=== PATIENT | female | born 1950 | race Caucasian/White ===

== ENCOUNTER → 2017-04-14 | Outpatient (CLI) | payer MEDICARE, BC | LOC: MC.RAD 07:45 | DX: Z12.31 Encounter for screening mammogram for malignant neoplasm of breast (principal) ==

== ENCOUNTER → 2018-07-06 | Outpatient (CLI) | payer MEDICARE, BC | LOC: MC.RAD 07:37 | DX: Z12.31 Encounter for screening mammogram for malignant neoplasm of breast (principal) ==

== ENCOUNTER → 2019-10-01 | Outpatient (CLI) | payer MEDICARE, BC | LOC: MC.RAD 07:52 | DX: Z12.31 Encounter for screening mammogram for malignant neoplasm of breast (principal) ==

== ENCOUNTER 2020-01-10 05:49 | Day surgery (SDC) | payer MEDICARE, BC ==
[~2020-01-10] VITALS: Ht 172.7 cm; Wt 77.8 kg
[2020-01-10] MEDS ORDERED: LEXAPRO 5MG5 MG PO (06:25)
[2020-01-10] MEDS ORDERED: PRILOSEC10 MG PO (06:25)
[2020-01-10] MEDS ORDERED: BENTYL 10MG10 MG/CAP PO (06:25)
[2020-01-10] MEDS ORDERED: MOBIC 7.5MG7.5 MG PO (06:26)
[2020-01-10] MEDS ORDERED: ONE-A-DAY ESSE1 EACH PO (06:26)
[2020-01-10] MEDS ORDERED: ASPIRIN E.C. 8181 MG PO (06:26)
[2020-01-10 06:27] VITALS: BP 147/78; PULSE 55; TEMP 97.1
[2020-01-10] MEDS ORDERED: PROBIOTIC FORMU1 CAP PO (06:27)
[2020-01-10 07:30] VITALS: BP 108/81; PULSE 59; TEMP 97.7
--- NOTE | 2020-01-10 07:30 | NUR ---
Pt to [facility] via cart. Pt awake and alert. Pt transfers to recliner with stand by assistance. in room. Pt denies pain or nausea. Water and muffin given per pt request. Will continue to monitor. Call light within reach.
[2020-01-10 07:45] VITALS: BP 124/65; PULSE 57
--- NOTE | 2020-01-10 07:45 | NUR ---
Pt tolerating po fluids and food. Denies nausea. Will continue to monitor. Call light within reach.
[2020-01-10 08:00] VITALS: BP 145/77; PULSE 56
--- NOTE | 2020-01-10 08:00 | NUR ---
Pt continues to rest. Denies needs. Call light within reach.
[2020-01-10 08:15] VITALS: BP 139/66; PULSE 57
--- NOTE | 2020-01-10 08:15 | NUR ---
Pt visiting with family. into see pt. Call light within reach.
--- NOTE | 2020-01-10 08:30 | NUR ---
Discharge instructions reviewed. Pt voices understanding. IV site discontinued with all parts intact. Pt up to dress. Call light within reach.
--- NOTE | 2020-01-10 08:40 | NUR ---
Pt escorted to private car via wheel chair. Pt accompanied home by her .
== END 2020-01-10 08:40 | disposition home or self-care (01) ==
LOC: SDCO 05:49
DX: Z12.11 Encounter for screening for malignant neoplasm of colon (principal); K63.5 Polyp of colon; K64.8 Other hemorrhoids; K64.4 Residual hemorrhoidal skin tags; K57.30 Diverticulosis of large intestine without perforation or abscess without bleeding; Z86.010 Personal history of colon polyps; Z88.1 Allergy status to other antibiotic agents; Z88.8 Allergy status to other drugs, medicaments and biological substances; F41.9 Anxiety disorder, unspecified; K58.9 Irritable bowel syndrome, unspecified; K21.9 Gastro-esophageal reflux disease without esophagitis; E78.00 Pure hypercholesterolemia, unspecified; Z90.49 Acquired absence of other specified parts of digestive tract
CPT/HCPCS: J2704; J7030

== ENCOUNTER → 2020-11-18 | Outpatient (CLI) | payer MEDICARE, BC ==
[~2020-11-18] MED LIST: ASPIRIN E.C. 8181 MG PO; BENTYL 10MG10 MG/CAP PO; LEXAPRO 5MG5 MG PO; MOBIC 7.5MG7.5 MG PO; ONE-A-DAY ESSE1 EACH PO; PRILOSEC10 MG PO; PROBIOTIC FORMU1 CAP PO
== END ==
LOC: MC.RAD 14:23
DX: Z12.31 Encounter for screening mammogram for malignant neoplasm of breast (principal)

== ENCOUNTER → 2021-11-30 | Outpatient (CLI) | payer MEDICARE, BC | LOC: MC.RAD 09:30 | DX: Z12.31 Encounter for screening mammogram for malignant neoplasm of breast (principal) ==

== ENCOUNTER → 2024-01-05 | Outpatient (CLI) | payer MEDICARE, BC | LOC: MC.RAD 10:06 | DX: Z12.31 Encounter for screening mammogram for malignant neoplasm of breast (principal) ==